=== PATIENT | female | born 1970 | race Caucasian/White ===

== ENCOUNTER 2021-03-24 08:39 | Day surgery (SDC) | payer OTHER ==
[2021-03-18 14:53] VITALS: BMI 24.2
--- NOTE | 2021-03-24 08:04 | P.GSHP ---
History of Present Illness H&P Date: 03/24/21 CHIEF COMPLAINT: Colon screen HISTORY OF PRESENT ILLNESS: The patient is a 51-year-old female who presents for colon screen. Lower endoscopy was offered for further evaluation and management. PAST MEDICAL HISTORY: Please see list. PAST SURGICAL HISTORY: Please see list. MEDICATIONS: Please see list. ALLERGIES: Please see list. SOCIAL HISTORY: No illicit drug use FAMILY HISTORY: No reports of Crohn disease or ulcerative colitis. REVIEW OF ORGAN SYSTEMS: CONSTITUTIONAL: No reports of fevers or chills. PHYSICAL EXAM: VITAL SIGNS: Stable GENERAL: Well-developed pleasant in no acute distress. HEENT: No scleral icterus. Extraocular movements grossly intact. Moist buccal mucosa. NECK: Supple without lymphadenopathy. CHEST: Unlabored respirations. Equal bilateral excursions. CARDIOVASCULAR: Regular rate and rhythm. Distal 2+ pulses. ABDOMEN: Soft, nontender, nondistended. MUSCULOSKELETAL: No clubbing, cyanosis, or edema. ASSESSMENT: 1. Colon screen. PLAN: 1. Recommend proceeding with a lower endoscopy Past Medical History Past Medical History: Osteoarthritis (OA) Additional Past Medical History / Comment(s): heart murmer, anemia History of Any Multi-Drug Resistant Organisms: None Reported Past Surgical History: Tubal Ligation Past Anesthesia/Blood Transfusion Reactions: Motion Sickness Smoking Status: Never smoker - Past Family History Father Family Medical History: Cancer Medications and Allergies Home Medications Medication Instructions Recorded Confirmed Type Ibuprofen [Motrin] 800 mg PO Q8H PRN 03/18/21 03/18/21 History Iron(Dose Unknown) 1 tab PO DAILY 03/18/21 03/18/21 History L.acidoph,Paracasei, B.lactis 1 tab PO DAILY 03/18/21 03/18/21 History [Probiotic] Allergies Allergy/AdvReac Type Severity Reaction Status Date / Time Penicillins Allergy Unknown Verified 03/18/21 14:45 Childhood
[~2021-03-24 08:39] MED LIST: LACTATED RINGERS 1,000 ML IV SCH
[2021-03-24 09:01] VITALS: TEMP 97.4
[2021-03-24] MEDS ORDERED: LACTATED RINGERS 1,000 ML IV ONE (09:01)
[2021-03-24] MEDS ORDERED: PROPOFOL 10 MG/ML 20 ML VIAL IV ONE (09:46)
--- NOTE | 2021-03-24 10:23 | P.PCN ---
Date of Procedure: 03/24/21 Description of Procedure: PREOPERATIVE DIAGNOSIS: Colonoscopy screening. POSTOPERATIVE DIAGNOSIS: Colonoscopy screening. Transverse colon polyp OPERATION: Colonoscopy to the cecum, ileocecal valve and appendiceal orifice. Colonoscopy with cold forceps biopsy SURGEON: Pepper Thompson MD. ANESTHESIA: MAC. INDICATIONS: The patient is a 51-year-old female who presents for colonoscopy screening, her first. Benefits and risks were described and informed consent was obtained. DESCRIPTION OF PROCEDURE: The patient had undergone Sutab prep. The patient had been brought into the operating room and laid in the left lateral decubitus position. After adequate intravenous sedation, the rectum was examined with 2% lidocaine jelly. No external hemorrhoids were encountered. The rectal tone was within normal limits. No lesions were palpated in the rectal vault. An Olympus colonoscope was advanced until the cecum, ileocecal valve and appendiceal orifice were clearly viewed. The prep was good. No scattered diverticulosis was encountered. Colon polyp was identified normal proximal transverse colon removed using cold forceps biopsy. Retroflexion of the scope demonstrated grade 1 internal hemorrhoids without active bleeding or inflammation. The colon was desufflated. The patient had tolerated the procedure well. Withdrawal time was over 6 minutes. FINDINGS: Aronchick preparation quality scale 2 (1-5) Internal hemorrhoids, grade 1 No external prolapsed hemorrhoids. No arteriovenous malformations. Remove 1 polyp' -Cold forceps biopsy at proximal transverse colon, 3 mm polyp No focal colitis. RECOMMENDATIONS: Lower endoscopy in 5 years, 2025 Plan - Discharge Summary New Discharge Prescriptions: Continue L.acidoph,Paracasei, B.lactis [Probiotic] 1 tab PO DAILY Iron(Dose Unknown) 1 tab PO DAILY Ibuprofen [Motrin] 800 mg PO Q8H PRN PRN Reason: Pain Discharge Medication List Ibuprofen [Motrin] 800 mg PO Q8H PRN 03/18/21 [History] Iron(Dose Unknown) 1 tab PO DAILY 03/18/21 [History] L.acidoph,Paracasei, B.lactis [Probiotic] 1 tab PO DAILY 03/18/21 [History] Follow up Appointment(s)/Referral(s): Pepper Thompson MD [STAFF PHYSICIAN] - As Needed Patient Instructions/Handouts: *Surgery [facility] - (Anesthesia) Endoscopy Discharge Instructions, Colonoscopy (GEN), Colorectal Polyps (DC) Activity/Diet/Wound Care/Special Instructions: Repeat colonoscopy 5 years, 2025 Discharge Disposition: HOME SELF-CARE
[2021-03-24 10:36] VITALS: BP 94/56; PULSE 52; RESP 16
== END 2021-03-24 11:06 | disposition home or self-care (01) ==
LOC: ORWHC2ENDO 08:39
PROVIDERS: ATTEND Surgery Plastic and Reconstructive Surgery
DX: Z12.11 Encounter for screening for malignant neoplasm of colon (principal); D12.3 Benign neoplasm of transverse colon; Z79.899 Other long term (current) drug therapy; Z88.0 Allergy status to penicillin
CPT/HCPCS: 45380; 88305; 84703; J2704